=== PATIENT | female | born 1990 | race Caucasian/White ===

== ENCOUNTER 2018-08-27 20:26 | Emergency (ER) | payer MEDICAID, OTHER ==
[~2018-08-27] VITALS: Ht 152.4 cm; Wt 74.0 kg
[2018-08-27 20:51] VITALS: Ht 152.4 cm; Wt 74.0 kg
[2018-08-27] MEDS ORDERED: ONDANSETRON 4 MG INJ IV STA (21:26)
[2018-08-27] MEDS ORDERED: KETOROLAC 15 MG INJ IV STA (21:26)
[2018-08-27] MEDS ORDERED: SOD CHLORIDE 0.9% 1,000 ML IV STA (21:26)
--- NOTE | 2018-08-27 22:08 | ERD ---
ER Documentation Chief Complaint Chief Complaint R sided ab pain radiating to the flank w/dysuria today ROS All systems reviewed and are negative except as per history of present illness. Medications Home Meds No Active Prescriptions or Reported Meds Allergies Allergies: Coded Allergies: No Known Allergy (Unverified , 08/27/18) PMhx/Soc Medical and Surgical Hx: pt denies Medical Hx, pt denies Surgical Hx Hx Alcohol Use: No Hx Substance Use: No Hx Tobacco Use: No Smoking Status: Never smoker FmHx Family History: No diabetes Physical Exam Vitals Vital Signs Date Temp Pulse Resp B/P (MAP) Pulse Ox O2 O2 Flow FiO2 Time Delivery Rate 08/27/18 92 20 105/60 100 Room Air 22:19 (75) 08/27/18 100.5 97 20 118/77 100 20:51 (91) Physical Exam GENERAL: Well-developed, well-nourished, well-hydrated, moderate discomfort, afebrile HEENT: Moist mucous membranes, pink conjunctiva, no cervical spine tenderness or step-off deformities, no goiter, no jaundice or icterus, extraocular movements intact without pain. No submandibular induration, and no pharyngeal erythema NEURO: Alert and oriented 3, cranial nerves II through XII intact bilaterally, pupils equal round reactive to light, no focal deficits or facial asymmetry, sensation intact distally Strength 5/5 in upper and lower extremities bilaterally CARDIAC: Regular rate and rhythm, no murmurs rubs or gallops LUNGS: Clear bilaterally no wheezing crackles or stridor ABDOMEN: Soft nontender, no guarding, no rigidity, no rebound, no psoas sign no obturator sign. Normoactive bowel sounds SKIN: Warm and dry to touch, no abrasions, contusions, or hematomas, no lacerations, no ecchymosis, no target lesions, and without ulcers EXTREMITIES: No clubbing cyanosis or edema, calves are bilaterally symmetrical, no Homans sign, no popliteal cord sign. Distal pulses equal and bilateral PSYCH: Normal affect without agitation or irritability Result Diagram: 08/27/18212908/27/182129 Results 24 hrs Laboratory Tests Test 08/27/18 21:16 08/27/18 21:22 08/27/18 21:30 Bedside Urine pH (LAB) 5.5 Bedside Urine Protein (LAB) 2+ Bedside Urine Glucose (UA) Negative Bedside Urine Ketones (LAB) Negative Bedside Urine Blood 3+ Bedside Urine Nitrite (LAB) Positive Bedside Urine Leukocyte Esterase 3+ (L POC Beta HCG, Qualitative NEGATIVE White Blood Count 11.2 10^3/ul Red Blood Count 4.25 10^6/ul Hemoglobin 13.0 g/dl Hematocrit 39.8 % Mean Corpuscular Volume 93.6 fl Mean Corpuscular Hemoglobin 30.6 pg Mean Corpuscular 32.7 g/dl Hemoglobin Concent Red Cell Distribution Width 12.3 % Platelet Count 275 10^3/UL Mean Platelet Volume 9.8 fl Immature Granulocytes % 0.500 % Neutrophils % 66.8 % Lymphocytes % 25.2 % Monocytes % 5.5 % Eosinophils % 1.7 % Basophils % 0.3 % Nucleated Red Blood Cells % 0.0 /100WBC Immature Granulocytes # 0.060 10^3/ul Neutrophils # 7.5 10^3/ul Lymphocytes # 2.8 10^3/ul Monocytes # 0.6 10^3/ul Eosinophils # 0.2 10^3/ul Basophils # 0.0 10^3/ul Nucleated Red Blood Cells # 0.0 10^3/ul Urine Color YELLOW Urine Clarity CLOUDY Urine pH 5.0 Urine Specific [place] 1.011 Urine Ketones NEGATIVE mg/dL Urine Nitrite POSITIVE mg/dL Urine Bilirubin NEGATIVE mg/dL Urine Urobilinogen NEGATIVE mg/dL Urine Leukocyte Esterase 3+ Genesis/ul Urine Microscopic RBC 128 /HPF Urine Microscopic WBC > 182 /HPF Urine Squamous Epithelial Cells FEW /HPF Urine Bacteria FEW /HPF Urine Mucus FEW /HPF Urine Hemoglobin 3+ mg/dL Urine Glucose NEGATIVE mg/dL Urine Total Protein 2+ mg/dl Sodium Level 140 mmol/L Potassium Level 3.6 mmol/L Chloride Level 106 mmol/L Carbon Dioxide Level 23 mmol/L Anion Gap 11 Blood Urea Nitrogen 8 mg/dl Creatinine 0.57 mg/dl Est Glomerular Filtrat > 60 mL/min Rate mL/min Glucose Level 103 mg/dl Calcium Level 9.5 mg/dl Total Bilirubin 0.2 mg/dl Direct Bilirubin 0.00 mg/dl Indirect Bilirubin 0.2 mg/dl Aspartate Amino Transf (AST/SGOT) 22 IU/L Alanine 27 IU/L Aminotransferase (ALT/SGPT) Alkaline Phosphatase 106 IU/L Total Protein 8.1 g/dl Albumin 4.3 g/dl Globulin 3.80 g/dl Albumin/Globulin Ratio 1.13 Lipase 95 U/L Current Medications Medications Dose Sig/Sue Start Time Status Last (Trade) Ordered Route PRN Stop Time Admin Dose Reason Admin Sodium 1,000 ml @ Q1H STAT 08/27/18 DC 08/27/18 Chloride 1,000 mls/hr IV 21:26 21:36 08/27/18 22:25 Ondansetron 4 mg ONCE STAT 08/27/18 DC 08/27/18 HCl (Zofran IV 21:26 21:36 Inj) 08/27/18 21:27 Ketorolac 15 mg ONCE STAT 08/27/18 DC 08/27/18 Tromethamine IV 21:26 21:36 (Toradol) 08/27/18 21:27 Ceftriaxone 50 ml @ ONCE ONCE 08/27/18 DC 08/27/18 Sodium 100 mls/hr IVPB 22:30 22:11 08/27/18 22:59 Procedures/MDM IV line was established patient was placed on cardiac nurse specialist rhythm strip revealed a sinus rhythm at about 90 bpm with upright P and T waves. Patient was afebrile EKG performed, read by me revealed a normal sinus rhythm at 94 bpm, normal axis, narrow QRS complex, no concerning ST elevations or depressions noted CBC was normal, electrolytes normal, liver function tests normal, urinalysis positive for infection, test negative I administered 1 L normal saline IV, Zofran 4 mg IV, Toradol 15 mg IV, ceftriaxone [address] scan of the abdomen and pelvis was performed,IMPRESSION: 1. Mild circumferential bladder wall thickening with surrounding fat stranding, compatible with cystitis. 2. No calcific renal calculus or hydronephrosis. 3. Small soft tissue nodule adjacent to proximal descending colon, indeterminate but may represent a splenule. Patient's vital signs are normal, she is afebrile, pain has been controlled she will be discharged with oral antibiotics. Differential diagnoses considered, included but not limited to acute coronary syndrome, pulmonary embolism, aortic dissection, abdominal aortic aneurysm, sepsis, stroke, meningitis, encephalitis, pneumonia, appendicitis, cholecystitis, bowel obstruction, pyelonephritis, nephrolithiasis, cystitis, as well as metabolic, hematologic, and electrolyte abnormalities. As well as abscess, cellulitis, fractures, and dislocations. Patient feels much better at this time, and vital signs are normal, symptoms have improved. I did give strict instructions to return to the ED if symptoms continue or worsen, patient will otherwise follow-up with primary care physician. Patient understood instructions and agreed to plan. Disclaimer: Inadvertent spelling and grammatical errors are likely due to EHR/ dictation software use and do not reflect on the overall quality of patient care. Also, please note that the electronic time recorded on this note does not necessarily reflect the actual time of the patient encounter. Departure Diagnosis: Primary Impression: Acute UTI Condition: Good TANVIR CROCKER MD Aug 27, 2018 22:08
[2018-08-27] MEDS ORDERED: CEFTRIAXONE 1 GM/50 ML (PMX) 50 ML IVPB ONE (22:30)
[2018-08-27] MEDS ORDERED: NAPR-985 PO (23:29)
[2018-08-27] MEDS ORDERED: CEPH-443 PO (23:29)
[2018-08-27 23:35] VITALS: BP 96/57; PULSE 95; RESP 15
== END 2018-08-27 23:42 | disposition home or self-care (01) ==
LOC: E/R 20:26
DX: N39.0 Urinary tract infection, site not specified (principal)
CPT/HCPCS: 74176; 80053; 81001; 81003; 81025; 83690; 85025; J0696; J1885; J2405; J7030; 36415; 93005; 96374; 96375